=== PATIENT | male | born 1945 | race Caucasian/White ===

== ENCOUNTER 2020-06-08 14:37 | Inpatient (IN) ==
[2020-06-08] MEDS ORDERED: HEPARIN 5,000 UNIT/ML VIAL SQ ONE (15:11)
[2020-06-08] MEDS ORDERED: DILTIAZEM 25 MG/5 ML VIAL IV ONE (15:11)
--- NOTE | 2020-06-08 15:25 | Emergency Department Note ---
SOB HPI General Chief Complaint: Shortness of Breath/Dyspnea Stated Complaint: Shortness of breath Time Seen by Provider: 06/08/20 14:46 Source: patient Mode of arrival: ambulatory Limitations: no limitations History of Present Illness HPI Narrative: Narrative: 75-year-old male transferred from [facility] with chief complaint of of an episode of shortness of breath and dizziness today. Patient mentions being evaluated in our emergency department on 06/06. And during that visit he was diagnosed with new onset atrial fibrillation. It was recommended that he start Eliquis daily. However he consulted with his primary care provider (Dr. Denton) and it was decided to hold off starting the Eliquis until she undergoes an echocardiogram. Patient is scheduled for the echocardiogram within the next day or so. Patient also mentions recent history of diagnosis of Covid. He has had cold/flu symptoms since 05/26. He had a Covid test that was positive a week ago. The health department released him from quarantine last night. Patient mentions he woke up this morning feeling "okay". He went out did some errands around his property. He was rehanging a wintertime when he became dizzy and suddenly short of breath. This caused her to contact 911 who then arrived and transported him to our facility for further evaluation. Upon arrival, patient complains of persistent moderate shortness of breath. He denies any chest pain. He does mention episodes of chest pain previously. He denies any sensation of palpitations. ROS: Denies fever, sweats, chills. Denies headaches. Admits to mild runny nose, sinus congestion, and cough. Admits to an episode of nausea and vomiting last night. He denies abdominal pain. Denies dysuria, hematuria, urinary frequency, or urinary urgency. Denies generalized or focal weakness. Related Data Home Medications Medication Instructions Recorded Confirmed atorvastatin 40 mg PO DAILY 01/28/19 06/08/20 Previous Rx's Medication Instructions Recorded apixaban [Eliquis DVT-PE Treat 30D See Rx Instructions .ROUTE 06/06/20 Start] .COMPLEX #74 tab Allergies Allergy/AdvReac Type Severity Reaction Status Date / Time No Known Drug Allergies Allergy Verified 07/07/17 07:04 Review of Systems ROS ROS Narrative: Narrative: All systems ED: reviewed and negative except as stated. [facility] Narrative Patient History Narrative: Narrative: Medical/Surgical/Family History All Active Problems (Updated 06/08/20 @ 18:33 by Lawson Lackey PA-C) Asthma exacerbation (Acute) Finger fracture, right (Acute) Fall from slip, trip, or stumble (Acute) Contusion (Acute) Sprain and strain of wrist (Acute) Finger sprain (Acute) Concussion (Acute) Neck pain (Acute) Low back pain (Acute) Carotid artery stenosis (Acute) COVID-19 (Acute) Atrial fibrillation and flutter (Acute) Dizziness (Acute) Medical History Asthma exacerbation (Acute) Social History Smoking Status: Never smoker Exam Narrative Narrative: Narrative: General Limitations: no limitations General appearance: Present other (Well-developed, well-nourished, 75-year-old male patient laying semirecumbent on the emergency room gurney in no acute res piratory distress. He is speaking complete sentences. No nasal flaring. No accessory muscle use. He is afebrile, tachycardic with a heart rate of 139, and normal other vital signs.) Head Head: Present normocephalic Eye Eye: Present normal appearance, PERRL and EOMI; Absent scleral icterus and conjunctival injection ENT ENT: Present normal oropharynx and mucous membranes moist Neck Neck: Present trachea midline; Absent lymphadenopathy and thyromegaly Chest Chest: Present symmetric chest wall rise Respiratory Respiratory: Present decreased breath sounds (Decreased breath sounds throughout. No adventitious sounds heard.); Absent normal lung sounds bilaterally, respiratory distress, wheezes, stridor, accessory muscle use and prolonged expiratory phase Cardiovascular Cardiovascular: Present tachycardia and irregular rhythm; Absent systolic murmur and diastolic murmur Adbominal Abdominal: Present soft; Absent distention, tenderness, guarding, rebound, rigidity, organomegaly and mass Extremities Extremities: Present normal inspection, full ROM and normal capillary refill; Absent pedal edema Neurological Neurological: Present alert, oriented X3, CN II-XII intact, normal gait and reflexes normal; Absent motor sensory deficit Psychiatric Psychiatric: Present normal affect and normal mood Skin Skin: Present warm (WNL), dry and normal color Course Course Course Narrative: The differential diagnosis of shortness of breath in the adult patient is large and very complex. It includes the following conditions: Life threatening upper airway causes: Tracheal foreign objects, angioedema, anaphylaxis, infections of the pharynx and neck, and airway trauma. Life-threatening pulmonary causes: PE, COPD, asthma, pneumothorax, pulmonary infections, acute respiratory distress syndrome (ARDS), direct pulmonary injury, pulmonary hemorrhage, e-cigarette/vaping associated lung injury (EVALI). Life-threatening cardiac causes: Acute coronary syndrome (ACS), decompensated heart failure, cardiomyopathy, cardiac arrhythmia, valvular dysfunction, and cardiac tamponade. Life-threatening neurologic causes: Stroke or neuromuscular diseases. Life-threatening toxic/metabolic causes: Poisonings, salicylate overdose, carbon monoxide poisoning, diabetic ketoacidosis, sepsis, anemia, and acute chest syndrome. Other miscellaneous causes: Lung cancer, pleural effusions, ascites, , massive obesity, hyperventilation/anxiety. Patient has new onset atrial fibrillation. He has not started his previously prescribed anticoagulation as of yet. He is also recently been diagnosed with Covid and being quarantined for the last 2 weeks. I discussed the patient's work-up and management with my collaborating physician (Dr. Elaine). At this time it is recommended to order EKG, two-view chest x-ray, screening laboratory studies. He was recommended to start diltiazem 10 mg IVP to help with rate control. Patient was also given heparin 5000 units SQ to help with anticoagulation. Reevaluation(s) Reevaluation #1: A review the patient's diagnostics show the following: CBC within normal limits. PT 13.9. INR 1.0. CMP CO2 17, creatinine 1.4, glucose 110, all others normal limits. Troponin less than 0.01. Portable chest x-ray read by the radiologist as no acute disease. Upon reevaluation patient says "I feel fine". After reviewing all the data I discussed these findings with the patient. His laboratory work-up is unremarkable. His troponin is negative. His x-ray shows no acute issues. I discussed the case once again my collaborative physician at this time due to the patient's symptomatology and new onset atrial fib/flutter that required medical management it seems prudent to admit this patient to the facility. Knowing this, I reached out to our hospitalist (Dr. Najera) and discussed the case with him. Time: 16:52 Reevaluation #2: At this time Dr. Najera says that the patient responded very well to the IV Cardizem and it seems prudent to start him on an oral Cardizem extended release to help with rate control. This would allow the patient to be discharged home and then he can be followed closely by his primary care provider. With this in mind patient was given Cardizem SR 120 mg p.o. Time: 17:08 Reevaluation #3: Patient was gotten up and moved about the steady and dizzy. His heart rate increased up to [id number]. Patient lives at home with his elderly approximately 15 miles from the nearest small town. There is concerned for his safety at home. With his worsening symptoms I reached out to our hospitalist about admitting the patient here for ongoing care. At this time Dr. Najera did mention that the patient should be admitted here. There was question about his Covid status. The patient's been taken out of quarantine as of last night. The most recent Covid test that we have done is on 06/05. Dr. Najera mentioned starting a Cardizem drip. However, the patient is already being given Cardizem SR 120 mg p.o. in anticipation of being discharged to home. This was done in accordance with our previous conversation. Knowing this, patient was started on diltiazem drip at 5 mg/hour. As mentioned, patient is going to be admitted here to our facility under the care of her hospitalist. A ll further treatment decisions, modalities, and ultimate patient disposition will be carried out by the hospitalist. Vital Signs Vital signs: Vital Signs Temperature 97.8 F 06/08/20 14:42 Pulse Rate 139 H 06/08/20 14:42 Respiratory Rate 18 06/08/20 14:42 Blood Pressure 145/97 06/08/20 14:42 Pulse Oximetry (%) 97 06/08/20 14:42 Temperature 97.8 F 06/08/20 14:42 Pulse Rate 70 06/08/20 20:28 Respiratory Rate 23 H 06/08/20 20:28 Blood Pressure 106/79 06/08/20 20:16 Pulse Oximetry (%) 93 06/08/20 20:28 MDM MDM Narrative Medical decision making narrative: Narrative: Lab Data Lab results reviewed: Yes I reviewed the patient's lab results. Result diagrams: 06/08/20 15:20 06/08/20 15:19 Labs: Lab Results 06/08/20 06/08/20 06/08/20 Range/Units 15:19 15:19 15:19 WBC (4.5-11.0) K/mcL RBC (4.50-5.90) M/mcL Hgb (13.5-16.5) g/dL Hct (41.0-55.0) % MCV (80.0-100.0) fL MCH (26.0-34.0) pg MCHC (31.0-36.0) g/dL RDW (11.5-14.5) % Plt Count (140-440) K/mcL MPV (7.4-10.4) fL Neut % (Auto) (38.0-78.0) % Lymph % (Auto) (15.0-49.0) % [place] % (Auto) (1.0-12.0) % Eos % (Auto) (0.0-7.0) % Baso % (Auto) (0.0-2.0) % Lymph # (Auto) (1.50-4.80) K/mcL [place] # (Auto) (0.10-0.90) K/mcL Eos # (Auto) (0.00-0.70) K/mcL Baso # (Auto) (0.00-0.20) K/mcL Absolute Neutrophils (1.80-8.00) K/mcL PT 13.9 (11.9-14.5) sec INR 1.0 (0.9-1.1) Sodium 134 (133-145) mmol/L Potassium 3.8 (3.3-5.1) mmol/L Chloride 103 (96-108) mmol/L Carbon Dioxide 17 L (22-30) mmol/L Anion Gap 14.0 (8.0-16.0) BUN 21 (8-23) mg/dL Creatinine 1.4 H (0.7-1.2) mg/dL GFR Calculation 48 Glucose 110 H (70-105) mg/dL Calcium 8.8 (8.6-10.4) mg/dL Total Bilirubin 0.4 (0.1-1.0) mg/dL AST 34 (<40) U/L ALT 33 (<40) U/L Alkaline Phosphatase 91 (39-117) U/L Troponin T < 0.01 (<0.03) ng/mL Total Protein 6.0 (5.9-8.4) gm/dL Albumin 3.6 (3.2-5.2) gm/dL Globulin 2.4 (2.2-3.7) gm/dL Albumin/Globulin Ratio 1.5 (1.0-2.3) //20 Range/Units 15:20 WBC 6.9 (4.5-11.0) K/mcL RBC 5.33 (4.50-5.90) M/mcL Hgb 15.8 (13.5-16.5) g/dL Hct 46.5 (41.0-55.0) % MCV 87.2 (80.0-100.0) fL MCH 29.6 (26.0-34.0) pg MCHC 34.0 (31.0-36.0) g/dL RDW 12.7 (11.5-14.5) % Plt Count 239 (140-440) K/mcL MPV 11.7 H (7.4-10.4) fL Neut % (Auto) 52.6 (38.0-78.0) % Lymph % (Auto) 30.7 (15.0-49.0) % [place] % (Auto) 14.7 H (1.0-12.0) % Eos % (Auto) 1.6 (0.0-7.0) % Baso % (Auto) 0.4 (0.0-2.0) % Lymph # (Auto) 2.13 (1.50-4.80) K/mcL [place] # (Auto) 1.02 H (0.10-0.90) K/mcL Eos # (Auto) 0.11 (0.00-0.70) K/mcL Baso # (Auto) 0.03 (0.00-0.20) K/mcL Absolute Neutrophils 3.64 (1.80-8.00) K/mcL PT (11.9-14.5) sec INR (0.9-1.1) Sodium (133-145) mmol/L Potassium (3.3-5.1) mmol/L Chloride (96-108) mmol/L Carbon Dioxide (22-30) mmol/L Anion Gap (8.0-16.0) BUN (8-23) mg/dL Creatinine (0.7-1.2) mg/dL GFR Calculation Glucose (70-105) mg/dL Calcium (8.6-10.4) mg/dL Total Bilirubin (0.1-1.0) mg/dL AST (<40) U/L ALT (<40) U/L Alkaline Phosphatase (39-117) U/L Troponin T (<0.03) ng/mL Total Protein (5.9-8.4) gm/dL Albumin (3.2-5.2) gm/dL Globulin (2.2-3.7) gm/dL Albumin/Globulin Ratio (1.0-2.3) Radiology Data Radiology results reviewed: Yes I reviewed the patient's radiology results. Radiology results narrative: Ordering Physician: Lawson Lackey PA-C Date of Service: 06/08/20 Procedure(s): XR chest 1V portable Accession Number(s): [id number] CLINICAL INFORMATION: Shortness of breath COMPARISON: 06/06/2020 FINDINGS: Heart size, mediastinum and pulmonary vessels are normal. Lungs are clear. Mild elevation left diaphragm noted IMPRESSION: No acute disease Interpreted and Authenticated by: Henrry Jenkins 06/08/20 EKG Data EKG #1: EKG attestation: Yes I reviewed and interpreted this EKG. EKG results narrative: Twelve-lead EKG obtained showing atrial flutter 2: 1. Heart rate variable at 121 bpm. Prolonged QTC. No other ectopy. No acute ST segment changes. Discharge Plan Patient/Caregiver Discharge Instructions Pt seen by DESPATCH CLERK/PA only: Yes Clinical Impression: Atrial fibrillation and flutter, Dizziness Patient Disposition: Xfer As Inpt ([facility]) Condition: Good Follow up with: Lawson Denton MD [Primary Care Provider] - Prescriptions: No Action atorvastatin 40 MG tablet 40 mg PO DAILY RF: 0 Eliquis DVT-PE Treat 30D Start 5 mg (74 tabs) tablets,dose pack See Rx Instructions .ROUTE .COMPLEX Qty: 74 RF: 0
--- NOTE | 2020-06-08 15:55 | XRay Report ---
CLINICAL INFORMATION: Shortness of breath COMPARISON: 06/06/2020 FINDINGS: Heart size, mediastinum and pulmonary vessels are normal. Lungs are clear. Mild elevation left diaphragm noted IMPRESSION: No acute disease Interpreted and Authenticated by: Henrry Jenkins 06/08/20
[2020-06-08 16:25] LABS: Basophils # (Auto) 0.03 K/mcL (0.00-0.20); Basophils % (Auto) 0.4 % (0.0-2.0); Eosinophils # (Auto) 0.11 K/mcL (0.00-0.70); Eosinophils % (Auto) 1.6 % (0.0-7.0); Hematocrit 46.5 % (41.0-55.0); Hemoglobin 15.8 g/dL (13.5-16.5); Lymphocytes # (Auto) 2.13 K/mcL (1.50-4.80); Lymphocytes % (Auto) 30.7 % (15.0-49.0); Mean Cell Volume 87.2 fL (80.0-100.0); Mean Platelet Volume 11.7 fL (7.4-10.4); Monocytes # (Auto) 1.02 K/mcL (0.10-0.90); Monocytes % (Auto) 14.7 % (1.0-12.0); Neutrophils % (Auto) 52.6 % (38.0-78.0); Platelet Count 239 K/mcL (140-440); RBC 5.33 M/mcL (4.50-5.90); Red Cell Distribution Width 12.7 % (11.5-14.5); WBC 6.9 K/mcL (4.5-11.0)
[2020-06-08 16:44] LABS: ALT/SGPT 33 U/L (<40); AST/SGOT 34 U/L (<40); Albumin 3.6 gm/dL (3.2-5.2); Albumin/Globulin Ratio 1.5 (1.0-2.3); Alkaline Phosphatase 91 U/L (39-117); Bilirubin,Total 0.4 mg/dL (0.1-1.0); Blood Urea Nitrogen 21 mg/dL (8-23); Calcium 8.8 mg/dL (8.6-10.4); Carbon Dioxide 17 mmol/L (22-30); Chloride 103 mmol/L (96-108); Globulin 2.4 gm/dL (2.2-3.7); Glomerular Filtration Rate 48; Glucose 110 mg/dL (70-105)
[2020-06-08 16:46] LABS: Prothrombin Time 13.9 sec (11.9-14.5)
[2020-06-08] MEDS ORDERED: DILTIAZEM 120 MG CAP.XL.24H PO ONE (17:06)
[2020-06-08] MEDS: DILTIAZEM 125 MG in DEXTROSE 5% IN WATER 100 ML IV SCH (18:59)
--- NOTE | 2020-06-08 19:11 | Internal Med History&Physical ---
HPI History of Present Illness Patient information: Note initiated : 06/08/20 at 7:05 pm Service Date, if different from initiated Date: [] Patient: Demetris Swanson a 75 y/o M admitted on for Shortness of breath. Chief Complaint: Lightheadedness and dizziness History of present illness: Mr. Swanson is a 75 year old M with a recent history of CKD stage III/new onset atrial fibrillation was seen on the at [facility] ER with URI symptoms. Patient was recently tested positive for Covid however not not requiring oxygen and negative chest imaging. He was discharged in stable state to continue quarantine and follow-up with primary care physician. He was advised anticoagulation and echocardiogram. He presents today from [facility] following symptoms of dizziness/lightheadedness and shortness of breath that has progressed over the last 6 hours. Patient was in his baseline state of health until last evening. Initial work-up in the ER was consistent with A. fib RVR with heart rate around 150s. He responded transiently to diltiazem push and was subsequently started on diltiazem drip. Hospitalist service was consulted for admission. At the time of my evaluation patient is alert and oriented. He denies weight loss/heat intolerance/changes in medications/palpitation but endorses to exertional dyspnea slight lightheadedness on exertion. He denies fever, chills but endorses fatigue/myalgia. Denies rash Review of systems 10 point review system was performed and is negative except for ones discussed above PFSH PFSH All Active Problems (Updated 06/08/20 @ 18:33 by Lawson Lackey PA-C) Asthma exacerbation (Acute) Finger fracture, right (Acute) Fall from slip, trip, or stumble (Acute) Contusion (Acute) Sprain and strain of wrist (Acute) Finger sprain (Acute) Concussion (Acute) Neck pain (Acute) Low back pain (Acute) Carotid artery stenosis (Acute) COVID-19 (Acute) Atrial fibrillation and flutter (Acute) Dizziness (Acute) Medical History Asthma exacerbation (Acute) Social History smoking status: Never smoker MEDS/ALLERGIES Home Medications and Allergies Home Medications Medication Instructions Recorded Confirmed Type atorvastatin 40 mg PO DAILY 01/28/19 06/08/20 History apixaban [Eliquis DVT-PE Treat 30D See Rx Instructions .ROUTE 06/06/20 Rx Start] .COMPLEX #74 tab Allergies Allergy/AdvReac Type Severity Reaction Status Date / Time No Known Drug Allergies Allergy Verified 07/07/17 07:04 EXAM Constitutional Vitals: Temp Pulse Resp BP Pulse Ox 97.8 F 47 L 24 H 124/72 95 06/08/20 14:42 06/08/20 18:46 06/08/20 18:46 06/08/20 18:46 06/08/20 18:46 Alert oriented Head normocephalic Oral cavity moist No ear nose discharge Eye movement symmetrical Neck supple no lymphadenopathy S1-S2 tachycardia/irregular Nonlabored breathing Nondistended nontender abdomen Lower extremity no cyanosis clubbing or joint swelling Skin no suspicious lesion Psych anxious but alert cooperative Neuro normal higher function DATA Data Completed and Pending Labs: Labs from last 24 hours 06/08/20 06/08/20 06/08/20 15:20 15:19 15:19 WBC 6.9 RBC 5.33 Hgb 15.8 Hct 46.5 MCV 87.2 MCH 29.6 MCHC 34.0 RDW 12.7 Plt Count 239 MPV 11.7 H Neut % (Auto) 52.6 Lymph % (Auto) 30.7 [place] % (Auto) 14.7 H Eos % (Auto) 1.6 Baso % (Auto) 0.4 Lymph # (Auto) 2.13 [place] # (Auto) 1.02 H Eos # (Auto) 0.11 Baso # (Auto) 0.03 Absolute Neutrophils 3.64 PT INR Sodium 134 Potassium 3.8 Chloride 103 Carbon Dioxide 17 L Anion Gap 14.0 BUN 21 Creatinine 1.4 H GFR Calculation 48 Glucose 110 H Calcium 8.8 Total Bilirubin 0.4 AST 34 ALT 33 Alkaline Phosphatase 91 Troponin T < 0.01 Total Protein 6.0 Albumin 3.6 Globulin 2.4 Albumin/Globulin Ratio 1.5 06/08/20 15:19 WBC RBC Hgb Hct MCV MCH MCHC RDW Plt Count MPV Neut % (Auto) Lymph % (Auto) [place] % (Auto) Eos % (Auto) Baso % (Auto) Lymph # (Auto) [place] # (Auto) Eos # (Auto) Baso # (Auto) Absolute Neutrophils PT 13.9 INR 1.0 Sodium Potassium Chloride Carbon Dioxide Anion Gap BUN Creatinine GFR Calculation Glucose Calcium Total Bilirubin AST ALT Alkaline Phosphatase Troponin T Total Protein Albumin Globulin Albumin/Globulin Ratio A/P Narrative A/P Narrative: * A flutter/atrial fibrillation with RVR-echocardiogram/diltiazem drip/rate control measures, admit to telemetry * COVID-19/acute viral syndrome-supportive management. Start dexamethasone. * CKD stage III-monitor renal function * Full code * prophylaxis heparin Plan * Inpatient telemetry admission * Diltiazem drip * Echocardiogram * Dexamethasone * Supportive management * PT OT nutrition support Time Spent With Patient Time: Total time spent is greater than 50% in coordination of care (as documented) at patient's floor/unit and/or counseling patient:
[2020-06-08] MEDS ORDERED: ACETAMINOPHEN 650 MG/65 ML BOTTLE IV PRN (21:09)
[2020-06-08] MEDS ORDERED: MELATONIN 3 MG TABLET PO PRN (21:09)
[2020-06-08] MEDS ORDERED: DILTIAZEM 125 MG in 0.9 % SODIUM CHLORIDE 100 ML IV SCH (21:09)
[2020-06-08] MEDS ORDERED: BISACODYL 10 MG SUPP.RECT PR PRN (21:09)
[2020-06-08] MEDS ORDERED: ACETAMINOPHEN 325 MG TABLET PO PRN (21:09)
[2020-06-08] MEDS ORDERED: ONDANSETRON 4 MG/2 ML VIAL IV PRN (21:09)
[2020-06-08] MEDS ORDERED: POTASSIUM CHLORIDE 40 MEQ in DEXTROSE 5% IN WATER 500 ML IV PRN (21:09)
[2020-06-08] MEDS ORDERED: ONDANSETRON 4 MG ODT TABLET SL PRN (21:09)
[2020-06-08] MEDS ORDERED: METOPROLOL TARTRATE 5 MG/5 ML VIAL IV PRN (21:09)
[2020-06-08] MEDS ORDERED: MAGNESIUM SULFATE 2 GM/50 ML BAG IV PRN (21:09)
[2020-06-08] MEDS ORDERED: POLYETHYLENE GLYCOL 3350 17 GM PACKET PO PRN (21:09)
[2020-06-08] MEDS: DOCUSATE SODIUM 100 MG CAPSULE PO SCH (21:53)
[2020-06-08] MEDS: SENNOSIDES/DOCUSATE SODIUM 1 TAB TABLET PO SCH (21:53)
[2020-06-08] MEDS: 0.9 % SODIUM CHLORIDE 10 ML SYRINGE IV SCH (22:09)
[2020-06-09 06:04] LABS: Basophils # (Auto) 0.03 K/mcL (0.00-0.20); Basophils % (Auto) 0.5 % (0.0-2.0); Eosinophils % (Auto) 1.7 % (0.0-7.0); Hematocrit 47.4 % (41.0-55.0); Hemoglobin 15.5 g/dL (13.5-16.5); Lymphocytes # (Auto) 1.84 K/mcL (1.50-4.80); Lymphocytes % (Auto) 31.7 % (15.0-49.0); Mean Cell Volume 88.9 fL (80.0-100.0); Mean Corpuscular HGB Conc 32.7 g/dL (31.0-36.0); Mean Platelet Volume 11.3 fL (7.4-10.4); Monocytes # (Auto) 1.03 K/mcL (0.10-0.90); Monocytes % (Auto) 17.8 % (1.0-12.0); Neutrophils % (Auto) 48.3 % (38.0-78.0); Platelet Count 217 K/mcL (140-440); RBC 5.33 M/mcL (4.50-5.90); Red Cell Distribution Width 12.9 % (11.5-14.5); WBC 5.8 K/mcL (4.5-11.0)
[2020-06-09] MEDS: 0.9 % SODIUM CHLORIDE 10 ML SYRINGE IV SCH ×3 (06:29→20:14)
[2020-06-09 06:32] LABS: ALT/SGPT 26 U/L (<40); AST/SGOT 24 U/L (<40); Albumin 3.6 gm/dL (3.2-5.2); Albumin/Globulin Ratio 1.5 (1.0-2.3); Alkaline Phosphatase 89 U/L (39-117); Bilirubin,Direct < 0.2 mg/dL (<0.3); Bilirubin,Total 0.7 mg/dL (0.1-1.0); Blood Urea Nitrogen 19 mg/dL (8-23); Carbon Dioxide 21 mmol/L (22-30); Chloride 107 mmol/L (96-108); Globulin 2.4 gm/dL (2.2-3.7); Glomerular Filtration Rate 58; Glucose 95 mg/dL (70-105); Lactate Dehydrogenase 151 U/L (135-225); Phosphorous 3.3 mg/dL (2.5-4.5); Triglycerides 98 mg/dL (<150); Uric Acid 7.2 mg/dL (2.5-8.0)
[2020-06-09] MEDS ORDERED: DILTIAZEM 125 MG in 0.9 % SODIUM CHLORIDE 100 ML IV PRN (08:00)
[2020-06-09] MEDS ORDERED: DILTIAZEM 125 MG in DEXTROSE 5% IN WATER 100 ML IV PRN (08:00)
[2020-06-09] MEDS: ENOXAPARIN 40 MG/0.4 ML SYRINGE SQ SCH (08:30)
[2020-06-09] MEDS: DOCUSATE SODIUM 100 MG CAPSULE PO SCH ×2 (08:30→20:14)
[2020-06-09] MEDS: MULTIVIT,THER IRON,CA,FA & MIN 1 TABLET PO SCH (08:30)
[2020-06-09] MEDS: DEXAMETHASONE 4 MG TABLET PO SCH (08:30)
[2020-06-09] MEDS: ATORVASTATIN 40 MG TABLET PO SCH (08:30)
[2020-06-09] MEDS: DILTIAZEM 120 MG CAP.XL.24H PO SCH (09:53)
--- NOTE | 2020-06-09 10:36 | Internal Med Progress Note ---
SUBJECTIVE Subjective Patient information: Note initiated : 06/09/20 at 10:32 am Service Date, if different from initiated Date: [] Patient: Demetris Swanson 75 y/o M admitted on 06/08/20 for Shortness of breath. Chief Complaint: [] Interval history: History of present illness: Mr. Swanson is a 75 year old M with a recent history of CKD stage III/new onset atrial fibrillation was seen on the at [facility] ER with URI symptoms. Patient was recently tested positive for Covid however not not requiring oxygen and negative chest imaging. He was discharged in stable state to continue quarantine and follow-up with primary care physician. He was advised anticoagulation and echocardiogram. He presents today from [facility] following symptoms of dizziness/lightheadedness and shortness of breath that has progressed over the last 6 hours. Patient was in his baseline state of health until last evening. Initial work-up in the ER was consistent with A. fib RVR with heart rate around 150s. He responded transiently to diltiazem push and was subsequently started on diltiazem drip. Hospitalist service was consulted for admission. At the time of my evaluation patient is alert and oriented. He denies weight loss/heat intolerance/changes in medications/palpitation but endorses to exertional dyspnea slight lightheadedness on exertion. He denies fever, chills but endorses fatigue/myalgia. Denies rash 06/09-patient doing well. Rate controlled around 100 220. Started on oral diltiazem. Drip weaned off. Await echocardiogram. Persistent lightheadedness dizziness on exertion. Continue therapies. No overnight fever chills. Crea tinine 1.2. Constitutional Vitals: Vital Signs Temp Pulse Resp BP Pulse Ox 97.9 F 55 L 15 115/78 98 06/09/20 08:00 06/09/20 10:00 06/09/20 10:00 06/09/20 10:00 06/09/20 10:00 Period Temp Pulse Resp BP Sys/Smith Pulse Ox Last 24 Hr 97.8 F-98.2 F 27-150 8-30 90-175/59-146 93-100 Intake and Output 06/08/20 06/09/20 06/09/20 21:59 05:59 13:59 Intake Total 18 2 0 Output Total 225 Balance 18 2 -225 Weight 92.986 kg 89.312 kg Alert oriented Nonlabored breathing No lymphedema Telemetry A. fib variable rate 1 10-1 20 Intake & Output: Intake & Output 06/08/20 06/09/20 06/09/20 21:59 05:59 13:59 Intake Total 18 2 0 Output Total 225 Balance 18 2 -225 Weight 92.986 kg 89.312 kg Intake: IV 18 2 0 Cardizem 125 mg In Dextrose 5% 18 2 0 in Water 100 ml @ 5 MG/HR 5 mls /hr IV Q12H [facility] Rx#:[id number] Output: Void Amount 225 Other: Urine Color Straw OBJ DATA Labs CBC & Chem 7: 06/09/20 04:54 06/09/20 04:54 Labs: Abnormal Lab Results 06/09/20 06/09/20 06/08/20 04:54 04:54 15:20 MPV 11.3 H 11.7 H [place] % (Auto) 17.8 H 14.7 H [place] # (Auto) 1.03 H 1.02 H Carbon Dioxide 21 L Creatinine Glucose Ferritin 1406.0 H 06/08/20 15:19 MPV [place] % (Auto) [place] # (Auto) Carbon Dioxide 17 L Creatinine 1.4 H Glucose 110 H Ferritin Meds: Medications Acetaminophen (Tylenol) 650 mg PO Q4-6HP PRN; Protocol PRN Reason: Per Pain Protocol/Fever > 101 Atorvastatin Calcium (Lipitor) 40 mg PO DAILY [facility] Bisacodyl (Dulcolax) 10 mg MA Q2-3DAYS PRN PRN Reason: Constipation Dexamethasone (Decadron) 6 mg PO DAILY [facility] Diltiazem HCl (Cardizem Sr) 120 mg PO DAILY [facility] Last Admin: 06/09/20 09:53 Dose: 120 mg Documented by: Docusate Sodium (Colace) 100 mg PO BID [facility] Last Admin: 06/08/20 21:53 Dose: Not Given Documented by: Enoxaparin Sodium (Lovenox) 40 mg SQ DAILY [facility] Potassium Chloride 40 meq/ (Dextrose) 520 mls @ 130 mls/hr IV UD PRN PRN Reason: K+ = or < 3.5 Magnesium Sulfate (Magnesium Sulfate) 2 gm in 50 mls @ 50 mls/hr IV UD PRN PRN Reason: MG = or < 1.7 Acetaminophen (Ofirmev) 650 mg in 65 mls @ 130 mls/hr IV Q6HP PRN; Protocol PRN Reason: Per Pain Protocol/Fever > 101 Diltiazem HCl 125 mg/ Sodium (Chloride) 125 mls @ 5 mls/hr IV Q12HP PRN; Protocol PRN Reason: Tachyarrhythmias Iron Carb/Multivit/[place]/Folic Acid (Multivitamin W/Minerals) 1 tab PO DAILY [facility] Melatonin (Melatonin 3mg Tablet) 3 mg PO HSP PRN PRN Reason: Insomnia Metoprolol Tartrate (Lopressor) 5 mg IV Q5M PRN PRN Reason: Heart Rate > 140 bpm Ondansetron HCl (Zofran Odt) 4 mg SL Q4-6HP PRN; Protocol PRN Reason: Nausea And Vomiting Ondansetron HCl (Zofran) 4 mg IV Q4-6HP PRN; Protocol PRN Reason: Nausea And Vomiting Polyethylene Glycol (Miralax) 17 gm PO DAILYP PRN PRN Reason: Constipation Senna/Docusate Sodium (Senna Plus Tablet) 1 tab PO HS [facility] Last Admin: 06/08/20 21:53 Dose: Not Given Documented by: Sodium Chloride (Saline Flush) 10 ml IV Q8 [facility] Last Admin: 06/09/20 06:29 Dose: 10 ml Documented by: A/P Narrative A/P Narrative: * A flutter/atrial fibrillation with RVR-now rate controlled on Cardizem. Off diltiazem drip. Await echocardiogram. Continue telemetry monitoring * COVID-19/acute viral syndrome-clinically improving with supportive management. Continue dexamethasone. * CKD stage III-monitor renal function, creatinine 1.2 * Full code * prophylaxis heparin Plan * Continue oral Cardizem * Await echocardiogram * Continue dexamethasone * Supportive management * PT OT nutrition support * Discharge planning Time Spent With Patient Time: Total time spent is greater than 50% in coordination of care (as documented) at patient's floor/unit and/or counseling patient:
[2020-06-09] MEDS: DILTIAZEM 125 MG in DEXTROSE 5% IN WATER 100 ML IV SCH (18:16)
[2020-06-09] MEDS: SENNOSIDES/DOCUSATE SODIUM 1 TAB TABLET PO SCH (20:14)
[2020-06-10] MEDS: 0.9 % SODIUM CHLORIDE 10 ML SYRINGE IV SCH ×3 (05:09→20:21)
[2020-06-10 05:58] LABS: Basophils # (Auto) 0 K/mcL (0.00-0.20); Basophils % (Auto) 0 % (0.0-2.0); Eosinophils # (Auto) 0 K/mcL (0.00-0.70); Eosinophils % (Auto) 0 % (0.0-7.0); Hematocrit 46.2 % (41.0-55.0); Hemoglobin 15.5 g/dL (13.5-16.5); Lymphocytes # (Auto) 1.02 K/mcL (1.50-4.80); Lymphocytes % (Auto) 14.7 % (15.0-49.0); Mean Cell Volume 87.7 fL (80.0-100.0); Mean Corpuscular HGB Conc 33.5 g/dL (31.0-36.0); Mean Platelet Volume 11.6 fL (7.4-10.4); Monocytes # (Auto) 0.65 K/mcL (0.10-0.90); Monocytes % (Auto) 9.4 % (1.0-12.0); Neutrophils % (Auto) 75.9 % (38.0-78.0); Platelet Count 246 K/mcL (140-440); RBC 5.27 M/mcL (4.50-5.90); Red Cell Distribution Width 12.7 % (11.5-14.5); WBC 6.9 K/mcL (4.5-11.0)
[2020-06-10 06:31] LABS: ALT/SGPT 23 U/L (<40); AST/SGOT 18 U/L (<40); Albumin 3.5 gm/dL (3.2-5.2); Albumin/Globulin Ratio 1.3 (1.0-2.3); Alkaline Phosphatase 93 U/L (39-117); Bilirubin,Direct < 0.2 mg/dL (<0.3); Bilirubin,Total 0.5 mg/dL (0.1-1.0); Blood Urea Nitrogen 22 mg/dL (8-23); Calcium 9.5 mg/dL (8.6-10.4); Carbon Dioxide 19 mmol/L (22-30); Chloride 108 mmol/L (96-108); Globulin 2.8 gm/dL (2.2-3.7); Glomerular Filtration Rate 73; Glucose 157 mg/dL (70-105); Lactate Dehydrogenase 137 U/L (135-225); Phosphorous 3.1 mg/dL (2.5-4.5); Triglycerides 76 mg/dL (<150); Uric Acid 6.6 mg/dL (2.5-8.0)
[2020-06-10] MEDS: DILTIAZEM 120 MG CAP.XL.24H PO SCH (07:33)
[2020-06-10] MEDS: ENOXAPARIN 40 MG/0.4 ML SYRINGE SQ SCH (08:12)
[2020-06-10] MEDS: DOCUSATE SODIUM 100 MG CAPSULE PO SCH ×2 (08:13→20:21)
[2020-06-10] MEDS: ATORVASTATIN 40 MG TABLET PO SCH (08:13)
[2020-06-10] MEDS: MULTIVIT,THER IRON,CA,FA & MIN 1 TABLET PO SCH (08:13)
--- NOTE | 2020-06-10 08:17 | XRay Report ---
HISTORY: Short of breath FINDINGS: The lungs are clear and normally expanded. The heart size and pulmonary vasculature are normal. There is no pleural effusion. The mediastinum and daphne are normal. There is a chronic deformity posteriorly and medially in the right third rib. 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 The distal end of the right clavicle has been surgically resected. There has been no significant change since 06/08/20. IMPRESSION: No acute abnormality Interpreted and Authenticated by: Tito Jones 06/10/20
[2020-06-10] MEDS: DEXAMETHASONE 4 MG TABLET PO SCH (08:22)
--- NOTE | 2020-06-10 12:19 | Internal Med Progress Note ---
SUBJECTIVE Subjective Patient information: Note initiated : 06/10/20 at 12:15 pm Service Date, if different from initiated Date: [] Patient: Demetris Swanson 75 y/o M admitted on 06/08/20 for Shortness of breath. Chief Complaint: Interval history: History of present illness: Mr. Swanson is a 75 year old M with a recent history of CKD stage III/new onset atrial fibrillation was seen on the at [facility] ER with URI symptoms. Patient was recently tested positive for Covid however not not requiring oxygen and negative chest imaging. He was d ischarged in stable state to continue quarantine and follow-up with primary care physician. He was advised anticoagulation and echocardiogram. He presents today from [facility] following symptoms of dizziness/lightheadedness and shortness of breath that has progressed over the last 6 hours. Patient was in his baseline state of health until last evening. Initial work-up in the ER was consistent with A. fib RVR with heart rate around 150s. He responded transiently to diltiazem push and was subsequently started on diltiazem drip. Hospitalist service was consulted for admission. At the time of my evaluation patient is alert and oriented. He denies weight loss/heat intolerance/changes in medications/palpitation but endorses to exertional dyspnea slight lightheadedness on exertion. He denies fever, chills but endorses fatigue/myalgia. Denies rash 06/09-patient doing well. Rate controlled around 100 220. Started on oral diltiazem. Drip weaned off. Await echocardiogram. Persistent lightheadedness dizziness on exertion. Continue therapies. No overnight fever chills. Cre atinine 1.2. 06/10-patient doing well however intermittent RVR requiring beta-guillermo. Await echocardiogram. Intermittent episodes of prolonged sinus pauses for second or more overnight. However patient is symptomatic. No additional concerns per nursing staff. Continue telemetry monitoring/Cardizem/beta-guillermo. Maintain Covid precautions. No overnight fever chills. Stable labs and hemodynamics. Started on Eliquis. Patient concerned about the cost however has 1 month supply. Constitutional Vitals: Vital Signs Temp Pulse Resp BP Pulse Ox 97.6 F 73 11 L 109/79 97 06/10/20 08:04 06/10/20 11:30 06/10/20 11:30 06/10/20 11:01 06/10/20 11:30 Period Temp Pulse Resp BP Sys/Smith Pulse Ox Last 24 Hr 97.4 F-98.2 F 68-77 11- 93-148/59-100 93-100 Intake and Output 06/09/20 06/10/20 06/10/20 21:59 05:59 13:59 Intake Total 420 960 Output Total 450 600 300 Balance -30 -600 660 Weight 88.36 kg A. fib RVR/intermittent sinus pause Nonlabored breathing No lymphedema No anxiety Intake & Output: Intake & Output 06/09/20 06/10/20 06/10/20 21:59 05:59 13:59 Intake Total 420 960 Output Total 450 600 300 Balance -30 -600 660 Weight 88.36 kg Intake: Oral 420 960 Output: Void Amount 450 600 300 Other: Meal Dinner Breakfast Percent of Meal Consumed 100% 100% Feeding Ability Independent Urine Appearance Clear Clear Urine Color Light Donna Bright Yellow Urine Odor Normal Stool Size Moderate Stool Color Brown Stool Consistency Formed # Bowel Movements 1 OBJ DATA Labs CBC & Chem 7: 06/10/20 04:42 06/10/20 04:42 Labs: Abnormal Lab Results 06/10/20 06/10/20 06/09/20 04:42 04:42 04:54 MPV 11.6 H Lymph % (Auto) 14.7 L Lamb % (Auto) Lymph # (Auto) 1.02 L Lamb # (Auto) Carbon Dioxide 19 L 21 L Creatinine Glucose 157 H Ferritin 1406.0 H 06/09/20 06/08/20 06/08/20 04:54 15:20 15:19 MPV 11.3 H 11.7 H Lymph % (Auto) Lamb % (Auto) 17.8 H 14.7 H Lymph # (Auto) Lamb # (Auto) 1.03 H 1.02 H Carbon Dioxide 17 L Creatinine 1.4 H Glucose 110 H Ferritin Meds: Medications Acetaminophen (Tylenol) 650 mg PO Q4-6HP PRN; Protocol PRN Reason: Per Pain Protocol/Fever > 101 Apixaban (Eliquis) 5 mg PO BID [facility] Atorvastatin Calcium (Lipitor) 40 mg PO DAILY [facility] Last Admin: 06/10/20 08:13 Dose: 40 mg Documented by: Bisacodyl (Dulcolax) 10 mg SC Q2-3DAYS PRN PRN Reason: Constipation Dexamethasone (Decadron) 6 mg PO DAILY [facility] Last Admin: 06/10/20 08:22 Dose: 6 mg Documented by: Diltiazem HCl (Cardizem Sr) 120 mg PO DAILY [facility] Last Admin: 06/10/20 07:33 Dose: 120 mg Documented by: Docusate Sodium (Colace) 100 mg PO BID [facility] Last Admin: 06/10/20 08:13 Dose: 100 mg Documented by: Potassium Chloride 40 meq/ (Dextrose) 520 mls @ 130 mls/hr IV UD PRN PRN Reason: K+ = or < 3.5 Magnesium Sulfate (Magnesium Sulfate) 2 gm in 50 mls @ 50 mls/hr IV UD PRN PRN Reason: MG = or < 1.7 Acetaminophen (Ofirmev) 650 mg in 65 mls @ 130 mls/hr IV Q6HP PRN; Protocol PRN Reason: Per Pain Protocol/Fever > 101 Diltiazem HCl 125 mg/ Sodium (Chloride) 125 mls @ 5 mls/hr IV Q12HP PRN; Protocol PRN Reason: Tachyarrhythmias Iron Carb/Multivit/Dillon/Folic Acid (Multivitamin W/Minerals) 1 tab PO DAILY [facility] Last Admin: 06/10/20 08:13 Dose: 1 tab Documented by: Melatonin (Melatonin 3mg Tablet) 3 mg PO HSP PRN PRN Reason: Insomnia Metoprolol Tartrate (Lopressor) 5 mg IV Q5M PRN PRN Reason: Heart Rate > 140 bpm Last Admin: 06/10/20 08:04 Dose: 5 mg Documented by: Ondansetron HCl (Zofran Odt) 4 mg SL Q4-6HP PRN; Protocol PRN Reason: Nausea And Vomiting Ondansetron HCl (Zofran) 4 mg IV Q4-6HP PRN; Protocol PRN Reason: Nausea And Vomiting Polyethylene Glycol (Miralax) 17 gm PO DAILYP PRN PRN Reason: Constipation Senna/Docusate Sodium (Senna Plus Tablet) 1 tab PO HS [facility] Last Admin: 06/09/20 20:14 Dose: Not Given Documented by: Sodium Chloride (Saline Flush) 10 ml IV Q8 [facility] Last Admin: 06/10/20 05:09 Dose: 10 ml Documented by: A/P Narrative A/P Narrative: * A flutter/atrial fibrillation with RVR-improved rate controlled on CCB/beta- guillermo. Await echocardiogram. * COVID-19/acute viral syndrome-clinically improving with supportive management. Continue dexamethasone/COVID-19 precautions. On Eliquis for CVA prophylaxis * CKD stage III-monitor renal function, creatinine 1.2 * Full code * prophylaxis none Eliquis Plan * Continue CCB/beta-guillermo * Await echocardiogram * Continue dexamethasone * Supportive management * PT OT nutrition support * Discharge planning likely in 24 hours pending clinical improvement Time Spent With Patient Time: Total time spent is greater than 50% in coordination of care (as documented) at patient's floor/unit and/or counseling patient:
[2020-06-10] MEDS: METOPROLOL SUCCINATE 25 MG TAB.XL.24H PO SCH ×3 (13:24→15:36)
[2020-06-10] MEDS: APIXABAN 5 MG TABLET PO SCH (20:09)
[2020-06-10] MEDS: SENNOSIDES/DOCUSATE SODIUM 1 TAB TABLET PO SCH (20:12)
[2020-06-11] MEDS: 0.9 % SODIUM CHLORIDE 10 ML SYRINGE IV SCH (05:30)
[2020-06-11 07:07] LABS: Basophils # (Auto) 0.01 K/mcL (0.00-0.20); Basophils % (Auto) 0.1 % (0.0-2.0); Eosinophils # (Auto) 0 K/mcL (0.00-0.70); Eosinophils % (Auto) 0 % (0.0-7.0); Hematocrit 46.7 % (41.0-55.0); Hemoglobin 15.2 g/dL (13.5-16.5); Lymphocytes # (Auto) 1.32 K/mcL (1.50-4.80); Lymphocytes % (Auto) 13.2 % (15.0-49.0); Mean Cell Volume 89.6 fL (80.0-100.0); Mean Corpuscular HGB Conc 32.5 g/dL (31.0-36.0); Mean Platelet Volume 11.5 fL (7.4-10.4); Monocytes # (Auto) 0.87 K/mcL (0.10-0.90); Monocytes % (Auto) 8.7 % (1.0-12.0); Platelet Count 273 K/mcL (140-440); RBC 5.21 M/mcL (4.50-5.90); Red Cell Distribution Width 12.6 % (11.5-14.5)
[2020-06-11 08:01] LABS: ALT/SGPT 22 U/L (<40); AST/SGOT 16 U/L (<40); Albumin 3.4 gm/dL (3.2-5.2); Albumin/Globulin Ratio 1.3 (1.0-2.3); Alkaline Phosphatase 81 U/L (39-117); Bilirubin,Direct < 0.2 mg/dL (<0.3); Bilirubin,Total 0.6 mg/dL (0.1-1.0); Blood Urea Nitrogen 25 mg/dL (8-23); Calcium 9.4 mg/dL (8.6-10.4); Carbon Dioxide 20 mmol/L (22-30); Chloride 106 mmol/L (96-108); Globulin 2.6 gm/dL (2.2-3.7); Glomerular Filtration Rate 58; Glucose 146 mg/dL (70-105); Lactate Dehydrogenase 160 U/L (135-225); Phosphorous 3.4 mg/dL (2.5-4.5); Triglycerides 95 mg/dL (<150)
[2020-06-11] MEDS: DILTIAZEM 120 MG CAP.XL.24H PO SCH (08:25)
[2020-06-11] MEDS: APIXABAN 5 MG TABLET PO SCH (08:25)
[2020-06-11] MEDS: METOPROLOL SUCCINATE 25 MG TAB.XL.24H PO SCH (08:25)
[2020-06-11] MEDS: DOCUSATE SODIUM 100 MG CAPSULE PO SCH (08:25)
[2020-06-11] MEDS: ATORVASTATIN 40 MG TABLET PO SCH (08:25)
[2020-06-11] MEDS: MULTIVIT,THER IRON,CA,FA & MIN 1 TABLET PO SCH (08:25)
[2020-06-11] MEDS: DEXAMETHASONE 4 MG TABLET PO SCH (08:26)
--- NOTE | 2020-06-11 12:02 | Discharge Summary ---
Discharge Provider Provider Patient information: Note initiated : 06/11/20 at 11:59 am Service Date, if different from initiated Date: [] Patient: Demetris Swanson a 75 y/o M admitted on 06/08/20 for Shortness of breath. Discharge diagnosis * A flutter/atrial fibrillation with RVR-improved rate controlled on CCB/beta- guillermo. Echocardiogram normal EF. Eliquis for CVA prophylaxis. * COVID-19/acute viral syndrome-clinically improved with supportive management. Maintain COVID-19 precautions * CKD stage III-creatinine stable at 1.2 Brief hospital course Mr. Swanson is a 75 year old M with a recent history of CKD stage III/new onset atrial fibrillation was seen on the at [facility] ER with URI symptoms. Patient was recently tested positive for Covid however not not requiring oxygen and negative chest imaging. He was discharged in stable state to continue quarantine and follow-up with primary care physician. He was advised anticoagulation and echocardiogram. He presents today from [facility] following symptoms of dizziness/lig htheadedness and shortness of breath that has progressed over the last 6 hours. Patient was in his baseline state of health until last evening. Initial work-up in the ER was consistent with A. fib RVR with heart rate around 150s. He responded transiently to diltiazem push and was subsequently started on diltiazem drip. Hospitalist service was consulted for admission. At the time of my evaluation patient is alert and oriented. He denies weight loss/heat intolerance/changes in medications/palpitation but endorses to exertional dyspnea slight lightheadedness on exertion. He denies fever, chills but endorses fatigue/myalgia. Denies rash 06/09-patient doing well. Rate controlled around 100 220. Started on oral diltiazem. Drip weaned off. Await echocardiogram. Persistent lightheadedness dizziness on exertion. Continue therapies. No overnight fever chills. Creatinine 1.2. 06/10-patient doing well however intermittent RVR requiring beta-guillermo. Await echocardiogram. Intermittent episodes of prolonged sinus pauses for second or more overnight. However patient is symptomatic. No additional concerns per nursing staff. Continue telemetry monitoring/Cardizem/beta-guillermo. Maintain Covid precautions. No overnight fever chills. Stable labs and hemodynamics. Started on Eliquis. Patient concerned about the cost however has 1 month supply. 06/11-patient doing well. Rate controlled. Continue beta-guillermo/CCB, recommend follow-up with cardiology as outpatient. Continue follow-up with primary care physician Dr. Ly. No overnight beat fever chills. Maintain COVID-19 precautions. Date of admission: 06/08/20 21:07 Discharge date: 06/11/20 Primary care physician: Lawson Denton Consults: 06/08/20 18:34 Consult to Physician [CONS] Stat Comment: Consulting Provider: Shashi Sun Reason For Exam: Physician to Consult Discharge Meds Discharge Medications Home Medications atorvastatin 40 mg PO DAILY 01/28/19 [History Confirmed 06/08/20 Last Taken Unknown] apixaban [Eliquis] 5 mg PO BID #30 tab 06/11/20 [Rx Last Taken Unknown] diltiazem HCl 120 mg PO DAILY #30 cap 06/11/20 [Rx Last Taken Unknown] metoprolol succinate 6.25 mg PO DAILY #30 tab 06/11/20 [Rx Last Taken Unknown] COURSE Hospital Course Hospital course: . Discharge diagnosis: . Time Spent with Patient Time attestation: Total time spent providing and/or coordinating discharge services: EXAM Constitutional Vitals: Temp Pulse Resp BP Pulse Ox 97.2 F 75 25 H 111/74 98 06/11/20 08:01 06/11/20 08:01 06/11/20 11:00 06/11/20 11:00 06/11/20 11:00 Discharge Data Data Completed and Pending Labs on day of discharge: Labs from last 24 hours 06/11/20 06/11/20 06/11/20 05:33 05:33 05:32 WBC 10.0 RBC 5.21 Hgb 15.2 Hct 46.7 MCV 89.6 MCH 29.2 MCHC 32.5 RDW 12.6 Plt Count 273 MPV 11.5 H Neut % (Auto) 78.0 Lymph % (Auto) 13.2 L Fountain % (Auto) 8.7 Eos % (Auto) 0 Baso % (Auto) 0.1 Lymph # (Auto) 1.32 L Fountain # (Auto) 0.87 Eos # (Auto) 0 Baso # (Auto) 0.01 Absolute Neutrophils 7.78 Sodium 138 Potassium 4.3 Chloride 106 Carbon Dioxide 20 L Anion Gap 12.0 BUN 25 H Creatinine 1.2 GFR Calculation 58 Glucose 146 H Uric Acid 6.0 Calcium 9.4 Phosphorus 3.4 Magnesium 2.2 Total Bilirubin 0.6 Direct Bilirubin < 0.2 GGT 33 AST 16 ALT 22 Alkaline Phosphatase 81 Lactate Dehydrogenase 160 Total Protein 6.0 Albumin 3.4 Globulin 2.6 Albumin/Globulin Ratio 1.3 Triglycerides 95 Procalcitonin Pending Discharge Plan Patient/Caregiver Discharge Instructions Activity: increase activity as tolerated Diet: Regular Diet Prescriptions: New diltiazem HCl 120 mg Capsule,Extended Release 24hr 120 mg PO DAILY Qty: 30 RF: 0 metoprolol succinate 25 mg Tablet Extended Release 24 Hr 6.25 mg PO DAILY Qty: 30 RF: 0 Eliquis 5 mg Tablet 5 mg PO BID Qty: 30 RF: 0 Continued atorvastatin 40 MG tablet 40 mg PO DAILY RF: 0 Discontinued aspirin 81 mg Tablet,Chewable 81 mg PO QDAY RF: 0 Other Ambulatory Orders: Discharge Referrals (Routine) Location: None Selected Ordered By: Shashi Sun Follow Up Plan Follow up with: Lawson Denton MD [Primary Care Provider] - Patient Disposition: Home, Self-Care Prognosis: Good Rehab Potential: Good I certify that the patient requires SNF services: No Overall status at discharge: patient is progressing back to baseline Discharge Orders: Discharge Order (Routine); Ordered 06/11/20 Ordered By: Shashi Sun
== END 2020-06-11 13:15 | disposition home or self-care (01) | DRG 308 ==
LOC: ED 14:37 → ICU 21:07
PROVIDERS: ADMIT Internal Medicine; ATTEND Internal Medicine